=== PATIENT | female | born 1965 | race African-American/Black ===

== ENCOUNTER 2017-08-09 19:14 | Emergency (ER) | payer MEDICAID | END 2017-08-09 20:10 | disposition home or self-care (01) | LOC: E/R 19:14 | DX: J02.9 Acute pharyngitis, unspecified (principal) | CPT/HCPCS: 99282; Z7502 ==

== ENCOUNTER 2019-01-23 12:00 | Emergency (ER) | payer SELFPAY, MEDICAID | END 2019-01-23 13:41 | disposition home or self-care (01) | LOC: FTE 12:00 | DX: J02.9 Acute pharyngitis, unspecified (principal) | CPT/HCPCS: 99283 ==